=== PATIENT | female | born 1960 | race Two or more races ===

== ENCOUNTER 2024-09-04 08:55 | Day surgery (SDC) | payer MEDICARE, MEDICAID, SELFPAY ==
[2024-09-04] VITALS (11 sets, daily range): BP systolic 122–144; BP diastolic 86–104; PULSE 89–105; RESP 13–20; TEMP 36.2–37; O2SAT 94–99; BMI 30.6
[2024-09-04] MEDS: fentaNYL CIT INJ 50 mCg/ML AMP 2ML (ASD USE ONLY) IV (10:33)
[2024-09-04] MEDS: MIDAZOLAM INJ 1 MG/ML VIAL 2 ML (ASD USE ONLY) 2 MG IV (10:33)
--- NOTE | 2024-09-04 11:53 | SUR.PHASEII ---
1130 Pt more awake and alert. Via [employer] speaker-pt denies pain or N/V. Abdomen softer. Passing flatus. Eliana po fluids. 1150 Pt assessment unchanged. No complaints. Amb with steady gait. Able to dress self. Pt requesting daughter, Nicole, to interpret for her. DC instructions given . Both state understanding. Pt meets dc criteria-to home.
== END 2024-09-04 11:50 | disposition home or self-care (01) ==
PROVIDERS: PCP Physician Assistant; Referring Provider Internal Medicine Gastroenterology; Visit Provider Internal Medicine Gastroenterology
PROC: 0DBE8ZX Excision of Large Intestine, Via Natural or Artificial Opening Endoscopic, Diagnostic (ICD-10-PCS; CPT 45380; principal; 2024-09-04 09:00)
DX: K52.9 Noninfective gastroenteritis and colitis, unspecified (principal); I10 Essential (primary) hypertension; K57.30 Diverticulosis of large intestine without perforation or abscess without bleeding; K64.9 Unspecified hemorrhoids; K63.89 Other specified diseases of intestine
CPT/HCPCS: 45380; A4649; J2250; J3010

== ENCOUNTER → 2024-10-16 | Outpatient (BNVA) | payer MEDICARE, MEDICAID, SELFPAY | END | disposition home or self-care (01) | PROVIDERS: PCP Physician Assistant; Referring Provider Physician Assistant; Visit Provider Urology | DX: R31.29 Other microscopic hematuria (principal); E11.9 Type 2 diabetes mellitus without complications; I10 Essential (primary) hypertension; E66.9 Obesity, unspecified; Z68.32 Body mass index [BMI] 32.0-32.9, adult; E78.00 Pure hypercholesterolemia, unspecified; K21.9 Gastro-esophageal reflux disease without esophagitis | CPT/HCPCS: 81003; 99212; G0463 ==

== ENCOUNTER → 2024-10-16 | Outpatient (CLI) | payer MEDICARE, MEDICAID, SELFPAY ==
[2024-10-16 14:32] LABS: Collection Type, Urine Clean Catch
[2024-10-16 16:34] LABS: Bilirubin,Urine Negative (Negative); Blood,Urine 2+ (Negative); Clarity,Urine Clear (Clear/Hazy); Color,Urine Lt-Yellow (Lt Yel-Yel); Glucose, Urine Negative (Negative); Ketones,Urine Negative (Negative); Leukocyte Esterase,Urine Negative (Negative); Nitrite,Urine Negative (Negative); PH,Urine 5.5 (5.0-7.0); Protein,Urine Negative (Neg - Trace); RBC,Urine 5 /hpf (0-3); Specific Gravity,Urine 1.015 (1.001-1.035); Squamous Epithelial Cell,Urine < 1 /hpf (0-5); Urobilinogen,Urine Negative mg/dL (0.0-1.0); WBC,Urine 2 /hpf (0-5)
== END | disposition home or self-care (01) ==
PROVIDERS: Referring Provider Urology; Visit Provider Urology
DX: R31.1 Benign essential microscopic hematuria (principal)
CPT/HCPCS: 81001

== ENCOUNTER → 2024-12-09 | Outpatient (CLI) | payer MEDICARE, MEDICAID, SELFPAY ==
--- NOTE | 2024-12-09 10:15 | XR_ITS ---
Examination: Abdomen sonogram, complete Date and time of exam: December 09, 2024 0944 hours INDICATIONS: Left upper abdominal pain beginning one year ago. Technique: Multiple real-time grayscale transabdominal sonographic images of the abdomen have been obtained. Findings: Normal gallbladder Normal common bile duct 0.3 cm Pancreatic head 2.6 cm Aorta not enlarged. Liver 18.1 cm fatty infiltration lobular contour Normal hepatopedal portal venous flow Patent IVC Right kidney 10.9 x 4.5 x 5.3 cm cortex 1.1 cm Left kidney 11.1 x 4.4 x 4.8 cm cortex 2.5 cm Mild bilateral renal parenchymal scar formation Spleen 9.1 cm IMPRESSION: Normal gallbladder Mild hepatomegaly suspect primary hepatocellular disease Mild bilateral renal pelvic parenchymal scar formation
== END | disposition home or self-care (01) ==
LOC: CDIM 09:23
PROVIDERS: Referring Provider Physician Assistant Medical; Visit Provider Physician Assistant Medical
DX: R16.0 Hepatomegaly, not elsewhere classified (principal); N28.89 Other specified disorders of kidney and ureter
CPT/HCPCS: 76700

== ENCOUNTER → 2025-01-13 | Outpatient (CLI) | payer MEDICARE, MEDICAID, SELFPAY ==
[2025-01-13 16:16] LABS: Alanine Aminotransferase 63 U/L (10-49); Albumin, Serum 4.4 gm/dL (3.4-4.8); Albumin/Globulin Ratio 1.7 (1.2-2.2); Alkaline Phosphatase 117 U/L (46-116); Anion Gap 7 (7-16); Aspartate Amino Transferase 37 U/L (0-34); BUN/Creatinine Ratio 18 Ratio (12-20); Bilirubin,Total 0.5 mg/dL (0.3-1.2); Blood Urea Nitrogen 14 mg/dL (9-23); Calcium 9.5 mg/dL (8.3-10.6); Calcium (Corrected) 9.5 mg/dL (8.5-10.1); Carbon Dioxide 24.5 mMol/L (20.0-31.0); Chloride 111 mMol/L (98-107); Creatinine (Component) 0.8 mg/dL (0.6-1.3); Globulin 2.6 gm/dL (2.3-3.5); Glucose 108 mg/dL (74-106); Osmolality,Calculated 284 (275-295); Potassium 3.7 mMol/L (3.4-5.1); Sodium 142 mMol/L (136-145); eGFR > 60 See Note
== END | disposition home or self-care (01) ==
PROVIDERS: PCP Physician Assistant; Referring Provider Urology; Visit Provider Urology
DX: R31.1 Benign essential microscopic hematuria (principal)
CPT/HCPCS: 36415; 80053

== ENCOUNTER → 2025-01-13 | Outpatient (BNVA) | payer MEDICARE, MEDICAID, SELFPAY | END | disposition home or self-care (01) | PROVIDERS: PCP Physician Assistant; Referring Provider Physician Assistant; Visit Provider Urology | DX: R31.29 Other microscopic hematuria (principal); E11.9 Type 2 diabetes mellitus without complications; I10 Essential (primary) hypertension; E66.9 Obesity, unspecified; E78.00 Pure hypercholesterolemia, unspecified; K21.9 Gastro-esophageal reflux disease without esophagitis | CPT/HCPCS: 81003; 99212; 99213; G0463 ==

== ENCOUNTER → 2025-02-05 | Outpatient (CLI) | payer MEDICARE, MEDICAID, SELFPAY ==
--- NOTE | 2025-02-05 14:46 | XR_ITS ---
Examination: CT abdomen, without intravenous contrast. CT pelvis, without intravenous contrast. CT abdomen, with intravenous contrast. CT pelvis, with intravenous contrast. 2-D sagittal, coronal reconstructions 3-D pelvocalyceal, ureteral reconstructions Date and time of exam: February 05, 2025 1500 hours INDICATIONS: Hematuria episodes 2 years CTDI: vol (mGy): 29.8 DLP: (mGycm): 1518 Technique: Multiple axial images of the abdomen and pelvis without intravenous contrast, 3.0 mm slice thickness. Postcontrast images abdomen and pelvis also obtained, intravenous administration 60 cc [id number] 2-D sagittal and coronal reconstructions. CT reconstructions of the ureters, pelvocalyceal systems. Low dose protocols were performed. One or more of the following dose reduction techniques were used; automated exposure control, adjustment of the mA and/or KV according to patient size, use of iterative reconstruction technique. Findings: Diffuse fatty infiltration throughout the liver No gallstones Spleen not enlarged No pancreatic or adrenal mass No renal or ureteral calculi, no hydronephrosis Aorta normal size Normal appendix No bowel obstruction No pelvic mass No bladder mass or bladder calculi Grade 1 spondylolisthesis L5 on S1 with advanced degenerative disc disease at this level IMPRESSION: No renal or ureteral calculi, no hydronephrosis, no solid renal mass lesion Normal appendix No bladder mass or bladder calculi
== END | disposition home or self-care (01) ==
LOC: CCTX 14:38
PROVIDERS: PCP Physician Assistant; Referring Provider Physician Assistant Medical; Visit Provider Physician Assistant Medical
DX: R31.9 Hematuria, unspecified (principal)
CPT/HCPCS: 74178; A4649; Q9967

== ENCOUNTER → 2025-03-10 | Outpatient (CLI) | payer MEDICARE, MEDICAID, SELFPAY ==
--- NOTE | 2025-03-10 11:00 | XR_ITS ---
Examination: Screening digital mammography, bilateral Computer aided detection 3-D breast Tomosynthesis, bilateral Date and time of exam: March 10, 2025 1027 hours Compared to mammograms dating to July 07, 2014 Indication: Screening Technique: Nonmagnified MLO, CC views of the breasts to been obtained, reconstructed from 3-D Tomosynthesis images. R2 computer aided detection program utilized for evaluation of suspicious masses and/or abnormal calcifications. 3-D Tomosynthesis images obtained. Findings: Scattered areas of fibroglandular density. Benign calcifications. No interval suspicious masses Impression: BI-RADS category II: Benign Findings. Recommend 1 year follow-up mammogram.
== END | disposition home or self-care (01) ==
LOC: CDIM 09:56
PROVIDERS: Referring Provider Physician Assistant; Visit Provider Physician Assistant
DX: Z12.31 Encounter for screening mammogram for malignant neoplasm of breast (principal); R92.323 Mammographic fibroglandular density, bilateral breasts; R92.1 Mammographic calcification found on diagnostic imaging of breast
CPT/HCPCS: 77063; 77067

== ENCOUNTER → 2025-03-20 | Outpatient (BNVA) | payer MEDICARE, MEDICAID, SELFPAY | END | disposition home or self-care (01) | PROVIDERS: PCP Physician Assistant; Referring Provider Physician Assistant; Visit Provider Urology | DX: D41.4 Neoplasm of uncertain behavior of bladder (principal); N35.92 Unspecified urethral stricture, female; Z87.440 Personal history of urinary (tract) infections; I10 Essential (primary) hypertension; E78.00 Pure hypercholesterolemia, unspecified; E11.9 Type 2 diabetes mellitus without complications; K21.9 Gastro-esophageal reflux disease without esophagitis | CPT/HCPCS: 52214; 81003; 96372; A4217; A4649; C1894; J1580; A9270 ==

== ENCOUNTER → 2025-07-10 | Outpatient (CLI) | payer MEDICARE, MEDICAID, SELFPAY ==
--- NOTE | 2025-07-10 09:27 | XR_ITS ---
EXAMINATION: Thoracic spine 3 views TECHNIQUE: Standing AP lateral: Lateral upper dorsal spine 3 views Date and time: July 10, 2025, 0953 hours INDICATIONS: Patient fell 3 days ago with injury to the upper back, upper back pain. FINDINGS: No acute thoracic fracture Mild diffuse thoracic disc narrowing Moderate thoracic spondylosis IMPRESSION: No acute thoracic fracture
--- NOTE | 2025-07-10 09:27 | XR_ITS ---
Examination: Shoulder, left, 3 views Technique: Shoulder AP internal rotation, AP external rotation, Y view shoulder, 3 views Exam date and time : July 10, 2025, 0931 hours INDICATIONS: Patient fell 3 days ago with into the shoulder, shoulder pain. 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
--- NOTE | 2025-07-10 09:27 | XR_ITS ---
Examination: Knee, left, 3 views Technique: Knee AP, lateral, oblique 3 views Date and time of exam: July 10, 2025, 0931 hours INDICATION: Patient fell 3 days ago with injury to the knee, knee pain. FINDINGS: Mild tricompartment osteoarthritis. No fracture or dislocation IMPRESSION: No fracture or dislocation
--- NOTE | 2025-07-10 09:27 | XR_ITS ---
Examination: Ribs, left, with PA chest, 4 views Technique: Chest PA, RIBS AP, RPO, LPO, 4 views Exam date and time: July 10, 2025, 0941 hours INDICATIONS: Patient fell 3 days ago with injury to the left chest, left rib pain Findings: Minimal prominence left ventricle. No pneumothorax. Moderate osteopenia No acute fractures, old resection distal left clavicle IMPRESSION: No pneumothorax pulmonary contusion or hemothorax No acute rib fractures
== END | disposition home or self-care (01) ==
LOC: CDIM 09:19
PROVIDERS: PCP Physician Assistant; Referring Provider Physician Assistant; Visit Provider Physician Assistant
DX: S89.92XA Unspecified injury of left lower leg, initial encounter (principal); S29.9XXA Unspecified injury of thorax, initial encounter; S49.92XA Unspecified injury of left shoulder and upper arm, initial encounter; W19.XXXA Unspecified fall, initial encounter
CPT/HCPCS: 71101; 72072; 73030; 73562

== ENCOUNTER → 2025-07-17 | Outpatient (BNVA) | payer MEDICARE, MEDICAID, SELFPAY | END | disposition home or self-care (01) | PROVIDERS: PCP Physician Assistant; Referring Provider Physician Assistant; Visit Provider Urology | DX: R31.29 Other microscopic hematuria (principal); E11.9 Type 2 diabetes mellitus without complications; I10 Essential (primary) hypertension; E66.9 Obesity, unspecified; Z68.33 Body mass index [BMI] 33.0-33.9, adult | CPT/HCPCS: 81003; 99212; G0463 ==